=== PATIENT | female | born 1965 | race Caucasian/White ===

== ENCOUNTER 2020-02-01 20:20 | Emergency (ER) | payer OTHER, BC, SELFPAY ==
[2020-02-01 20:21] VITALS: BP 147/87; PULSE 85; RESP 18; TEMP 36.3; O2SAT 100; BMI 27.4
--- NOTE | 2020-02-01 20:57 | RAD_ITS ---
HISTORY: fall. left wrist pain. COMPARISON: None FINDINGS: # of images incl. paperwork: 3 XR Wrist Min 3 Views : Left wrist No osseous or soft tissue abnormality. The carpal bones have a normal appearance. The distal ulna is unremarkable. No evidence of radiopaque foreign body. RAD/Wrist min 3 Views IMPRESSION: Distal radius fracture with intra-articular extention. Possible widening of scpholunate distance. This could be indicative of scapholunate ligamentous injury. at 2206 Reported and signed by: Josh Live MD Electronically Signed: Josh Live MD at 22:05 EDT Tel , Service support ,
--- NOTE | 2020-02-01 20:57 | RAD_ITS ---
HISTORY: fall. COMPARISON: None FINDINGS: # of images incl. paperwork: 3 XR Sacrum/Coccyx Min 2 Views: No displaced fractures are identified. The SI joints are unremarkable. The sacral neural foramina appear intact. RAD/Sacrum-Coccyx min 2 Views IMPRESSION: No displaced sacral or coccygeal fracture. at 2156 Reported and signed by: Josh Live MD Electronically Signed: Josh Live MD at 21:58 EDT Tel , Service support ,
--- NOTE | 2020-02-01 21:02 | ED.VIS.INJ ---
History of Present Illness Chief Complaint: Fall Informant: Patient Onset: Today Mechanism/Context: Slip, Work Related Narrative: Patient is a 54-year-old female with history of acid reflux presenting with fall and injury to her buttocks and left wrist. Patient states she was at work at the [employer] when she slipped and fell. She landed with most of her weight on her left wrist and also on her buttocks. This is where her pain is. She denies associated numbness or tingling. She not take anything for pain prior to arrival. She does take Mobic (which is an old prescription that she just started taking again) and her last dose was last night. She denies any in her head. She is not on any anticoagulation. No other injuries or complaints at this time. Past Medical History - Allergies and Home Meds Allergies/Adverse Reactions: Allergies No Known Allergies Allergy (Unverified 02/01/20 20:23) Primary Care Physician: Joseph Sosa MD [STAFF PHYSICIAN] - Past Medical History: - - GERD, arthritis Surgical History: noncontributory Smoking Status: Current every day smoker Review of Systems General: Denies: Chills, Fever, Sweats Eyes: Denies: Visual changes - bilaterally, Diplopia ENT: Denies: Rhinorrhea, Sore throat Cardiovascular: Denies: Chest pain, Palpitations Respiratory: Denies: Dyspnea, Cough, Dyspnea on exertion Gastrointestinal: Denies: Abdominal pain, Nausea, Vomiting, Diarrhea, Melena, Hematochezia Genitourinary: Denies: Dysuria, Hematuria, Frequency Musculoskeletal: Reports: Back pain - Tailbone, Swelling - Left wrist, Extremity Pain - Left wrist Skin: Denies: Rash, Wounds Neurological: Denies: Headache, Weakness, Numbness Physical Exam Vital Signs/Narrative: Vital Signs Temp Pulse Resp BP Pulse Ox 02/01/20 20:21 97.4 F L 85 18 147/87 H 100 Inital Vital Signs reviewed: Yes General: Well nourished, Well developed Head: Normocephalic, Atraumatic Eyes: Perrl, EOMI ENT: TM's clear, No hemotympanum or drainage, No trauma Neck: Nontender, Full ROM Cardiovascular: Regular rate, Regular rhythm, No murmurs Respiratory: No distress, CTA bilaterally, Chest nontender Abdomen: Soft, Nontender, Nondistended, Normal bowel sounds Back: Nontender Extremeties: Slight deformity and soft tissue swelling of the left wrist most pronounced over the distal radius. She does have some associated proximal radius/ulna tenderness but no deformity and normal range of motion of the elbow. Lower extremities are equal in length with no deformity noted. Tenderness to palpation over the sacrum/coccyx. No midline lumbar or thoracic tenderness to palpation. Neck is nontender with normal range of motion. Skin: Normal color, No rash Neurological: Alert, Oriented x3, Cranial nerves II-XII grossly intact, Normal Strength, Normal Sensation Psychological: Normal affect Diagnostic/Tx/Re-eval Clinical Impression(s) from Imaging Studies Sacrum and Coccyx X-Ray 02/01/20 20:57 IMPRESSION: No displaced sacral or coccygeal fracture. at 2159 Reported and signed by: Josh Live MD Electronically Signed: Josh Live MD at 21:58 EDT Tel , Service support , Wrist X-Ray 02/01/20 20:57 IMPRESSION: Distal radius fracture with intra-articular extention. Possible widening of scpholunate distance. This could be indicative of scapholunate ligamentous injury. at 2206 Reported and signed by: Josh Live MD Electronically Signed: Josh Live MD at 22:05 EDT Tel , Service support , Forearm X-Ray 02/01/20 21:40 IMPRESSION: Distal radius fracture extending into the radiocarpal joint. Possible widening of the scapholunate ligament which could be indicative of scapholunate ligament disrupture at 2157 Reported and signed by: Josh Live MD Electronically Signed: Josh Live MD at 21:56 EDT Tel , Service support , - Medical Decision Making Patient evaluated for injuries after mechanical fall. She appears nontoxic in no acute distress. She is neuro vastly intact. She has intact strength and sensation of her hand with intrinsic and extrinsic movements and preserved proposal director strength. She does have soft tissue swelling of the left wrist/distal radius. X-rays obtained show distal radius fracture extending into the radiocarpal joint as well as possible widening of the scapholunate ligament. Patient does have pain and swelling at both of those sites. She is placed in a AP splint, see procedure note. She is given orthopedics for follow-up. Workmen's Compensation paperwork is filed. Patient is given Tylenol and Motrin in the ER she has to drive home. She is given a prescription for [place] for further pain control that she can take when she is home. Patient is counseled on signs and symptoms requiring return to the emergency room. Patient verbalizes agreement and understand this plan. Patient discharged home in stable and improved condition. Procedures - Upper Extremity Splints Upper Extremity Splint: Orthoglass, - - AP splint. Patient neurovascularly intact after splint placement with brisk capillary refill. Splint Fabrication: Fabricated Location: Left ED Disposition - Plan for ED Patient: Disposition: Home or Assisted Living Diagnosis: Closed fracture of left distal radius, Scapholunate dissociation of left wrist Instructions: ED Mechanical Fall, ED Forearm Fracture without Reduction Prescriptions: Hydrocodone Bitart/Apap 5-325 [[place] 5MG-325MG] 1 tab PO Q6H PRN PRN 3 Days #12 tab PRN Reason: Pain Prescription Printed Referrals: Joseph Sosa MD [STAFF PHYSICIAN] - Additional Instructions: You may also take up to 600 mg of ibuprofen as well for pain. Please call the office tomorrow to follow-up with orthopedist, Dr. Sosa, tomorrow.
[2020-02-01] MEDS: Ibuprofen 600 MG Tablet PO (21:04)
[2020-02-01] MEDS: Acetaminophen 500 MG Tablet 1000 MG PO (21:04)
--- NOTE | 2020-02-01 21:40 | RAD_ITS ---
HISTORY: fall. left arm pain. Technique: Left forearm AP, lateral radiographs Comparison: None available Findings: Distal radius fracture is present with intratesticular extension to the radiocarpal joint. The scapholunate distance may be widened. If this is a true finding, this could be indicative of scapholunate ligament injury. Osseous mineralization,, and alignment otherwise appear preserved as imaged. No focal abnormality or radiopaque foreign body is seen in the surrounding soft tissues. RAD/Forearm 2 Views IMPRESSION: Distal radius fracture extending into the radiocarpal joint. Possible widening of the scapholunate ligament which could be indicative of scapholunate ligament disrupture at 2158 Reported and signed by: Josh Live MD Electronically Signed: Josh Live MD at 21:56 EDT Tel , Service support ,
== END 2020-02-01 22:53 | disposition home or self-care (01) ==
PROVIDERS: Emergency Provider Emergency Medicine
DX: S52.572A Other intraarticular fracture of lower end of left radius, initial encounter for closed fracture (principal); S39.92XA Unspecified injury of lower back, initial encounter; W01.0XXA Fall on same level from slipping, tripping and stumbling without subsequent striking against object, initial encounter; Y93.9 Activity, unspecified; Y92.63 Factory as the place of occurrence of the external cause; Y99.0 Civilian activity done for income or pay; M19.90 Unspecified osteoarthritis, unspecified site; K21.9 Gastro-esophageal reflux disease without esophagitis; F17.200 Nicotine dependence, unspecified, uncomplicated; Z79.899 Other long term (current) drug therapy
CPT/HCPCS: 29125; 72220; 73090; 73110; 99281